=== PATIENT | female | born 1955 | race Caucasian/White ===

== ENCOUNTER 2016-12-05 03:52 | Emergency (ER) | payer BC, OTHER ==
[~2016-12-05] VITALS: Ht 162.6 cm; Wt 76.0 kg
[~2016-12-05 03:52] MED LIST: LEVO100T82
[2016-12-05 03:58] VITALS: Ht 162.6 cm; Wt 76.0 kg
--- NOTE | 2016-12-05 04:13 | ERA ---
ER Documentation Chief Complaint Date/Time DATE: 12/05/16 TIME: 04:12 Chief Complaint sp R wrist surgery today, c/ severe post op pain HPI The patient is a 61-year-old female, presenting to the ER because of acute postoperative the right wrist pain. The pain is 8/10, worse with movement. She had right wrist surgery yesterday around [address] Valladares. She had a nerve block that was working well, the nerve block wore off around 1:30 AM this morning. She then took Percocet without response, therefore she came to the ER. She denies any fever, chills, neck pain, chest pain, dyspnea, abdominal pain, vomiting, diarrhea. She does not smoke, drink Past medical history: Hypothyroidism Past surgical history: Right wrist surgery ROS All systems reviewed and are negative except as per history of present illness. Medications Home Meds Active Scripts Oxycodone HCl/Acetaminophen (Percocet 10-325 mg Tablet) 1 Each Tablet, 1 EACH PO Q6, #10 TAB Prov:BLU JAMES MD 12/05/16 Reported Medications Levothyroxine Sodium* (Levoxyl*) 100 Mcg Tablet 01/27/10 Allergies Allergies: Coded Allergies: codeine (Unverified Allergy, Mild, nausea, 12/05/16) PMhx/Soc History of Surgery: No Hx Neurological Disorder: No Hx Respiratory Disorders: No Hx Cardiac Disorders: No Hx Miscellaneous Medical Probl: No Hx Alcohol Use: Yes Hx Substance Use: No Hx Tobacco Use: No Physical Exam Vitals Vital Signs Date Time Temp Pulse Resp B/P Pulse Ox O2 Delivery O2 Flow Rate FiO2 12/05/16 03:58 98.3 57 20 112/54 99 Physical Exam Const: No acute distress. Head: Atraumatic. Eyes: Normal Conjunctiva. ENT: Normal External Ears, Nose and Mouth. Neck: Full range of motion. No meningismus. Resp: Clear to auscultation bilaterally. Cardio: Regular rate and rhythm, no murmurs. Abd: Soft, non distended, normal bowel sounds, non tender. Skin: No petechiae or rashes. Back: No midline or flank tenderness. Ext: Right upper extremity is immobilized with a cast; she is able to move all her fingers without any difficulty, normal capillary refill Neur: Awake and alert. No focal deficit Psych: Normal Mood and Affect. Results 24 hrs Current Medications Medications (Trade) Dose Ordered Sig/Anne-Marie Route PRN Reason Start Time Stop Time Status Last Admin Dose Admin Hydromorphone HCl (Dilaudid) 1 mg ONCE STAT IV 12/05/16 04:16 12/05/16 04:17 DC 12/05/16 04:36 Ondansetron HCl 4 mg 4 mg ONCE STAT IV 12/05/16 04:16 12/05/16 04:17 DC 12/05/16 04:36 Sodium Chloride (NS) 1,000 ml @ 1,000 mls/hr Q1H ONCE IV 12/05/16 05:00 12/05/16 05:59 12/05/16 04:54 Procedures/MDM MEDICAL MAKING DECISION: The patient is a 61-year-old female, presenting with acute postop pain. She was treated with Dilaudid 1 mg IV for pain and Zofran 4 mg IV for nausea and 1 L normal saline for clinical dehydration with good response. The differential diagnoses considered include but are not limited to compartment syndrome, cellulitis, abscess Departure Diagnosis: Primary Impression: Acute postoperative pain Condition: Good Comments She was discharged with 10 tablets of Percocet 10 mg I discussed the findings with the patient. I advised the patient to follow-up with her orthopedist today, and return if any concern. BLU JAMES MD Dec 05, 2016 04:13
[2016-12-05] MEDS ORDERED: HYDROmorphONE 1 MG/ML SYG IV STA ×2 (04:16→05:37)
[2016-12-05] MEDS ORDERED: ONDANSETRON 4 MG INJ IV STA (04:16)
[2016-12-05] MEDS ORDERED: SOD CHLORIDE 0.9% 1,000 ML IV ONE (05:00)
[2016-12-05] MEDS ORDERED: OXYC-209 PO (05:08)
[2016-12-05 05:46] VITALS: BP 100/50; PULSE 62; RESP 18
== END 2016-12-05 06:15 | disposition home or self-care (01) ==
LOC: E/R 03:52
DX: G89.18 Other acute postprocedural pain (principal)
CPT/HCPCS: 96361; 96374; 96375; 96376; 99284; J1170; J2405; J7030